=== PATIENT | male | born 1960 | race Hispanic/Latino ===

== ENCOUNTER 2019-12-23 13:04 | Outpatient (RCR) | payer OTHER | END 2019-12-26 | LOC: PT 13:04 | PROVIDERS: ATTEND Specialist | DX: S92.011D Displaced fracture of body of right calcaneus, subsequent encounter for fracture with routine healing (principal); M25.571 Pain in right ankle and joints of right foot; R26.89 Other abnormalities of gait and mobility; M62.81 Muscle weakness (generalized) ==

== ENCOUNTER 2020-01-13 09:00 | Outpatient (RCR) | payer OTHER | END 2020-01-25 | LOC: PT 09:00 | PROVIDERS: ATTEND Specialist | DX: S92.011D Displaced fracture of body of right calcaneus, subsequent encounter for fracture with routine healing (principal); M25.571 Pain in right ankle and joints of right foot; R26.89 Other abnormalities of gait and mobility; M62.81 Muscle weakness (generalized) | CPT/HCPCS: 97139 ==